=== PATIENT | female | born 1955 | race Asian ===

== ENCOUNTER 2017-04-09 12:58 | Outpatient (CLI) | payer OTHER | END 2017-04-09 13:40 | disposition home or self-care (01) | LOC: ORTHO 12:58 | PROVIDERS: ATTEND Nurse Practitioner Family | DX: M25.562 Pain in left knee (principal); S89.92XD Unspecified injury of left lower leg, subsequent encounter; Y92.018 Other place in single-family (private) house as the place of occurrence of the external cause | CPT/HCPCS: 99211 ==

== ENCOUNTER 2017-04-30 14:53 | Outpatient (CLI) | payer OTHER ==
[2017-04-30 14:55] VITALS: BP 125/76
== END 2017-04-30 15:46 | disposition home or self-care (01) ==
LOC: ORTHO 14:53
PROVIDERS: ATTEND Nurse Practitioner Family
DX: S89.92XD Unspecified injury of left lower leg, subsequent encounter (principal); W18.39XD Other fall on same level, subsequent encounter; Y92.830 Public park as the place of occurrence of the external cause
CPT/HCPCS: 99213

== ENCOUNTER 2017-05-30 11:16 | Outpatient (CLI) | payer OTHER ==
[2017-05-30 11:21] VITALS: BP 134/81
== END 2017-05-30 11:50 | disposition home or self-care (01) ==
LOC: ORTHO 11:16
PROVIDERS: ATTEND Nurse Practitioner Family
DX: S89.92XD Unspecified injury of left lower leg, subsequent encounter (principal)
CPT/HCPCS: 99213